=== PATIENT | female | born 1930 | race Caucasian/White ===

== ENCOUNTER 2016-08-22 15:09 | Inpatient (IN) | payer OTHER ==
[~2016-08-22] VITALS: Ht 144.8 cm; Wt 55.9 kg
--- NOTE | ~2016-08-22 | EKG ---
[place] [address] [facility] [place] [address] ELECTROCARDIOGRAM REPORT Name: KURTCHINYERE Room #: 444-P ADM IN M.R.#: [id number] Admission: 08/22/16 Attend Phys: Rod Prather DO Discharge: Date of : 32 Report #: [id number] THIS REPORT FOR: //name// [facility] ED Test Date: 2016-08-22 Test Time: 15:32:51 Pat Name: CHINYERE HICKS Department: Room: 444 Gender: F Presentation Specialist: Erick JOHNSON : 1930 Requested By: Courtney Mata Order Number: [id number] MD: Craig Jensen Measurements Intervals [place] Rate: 88 P: 75 CO: 158 QRS: -16 QRSD: 95 T: 33 QT: 360 QTc: 436 Interpretive Statements Sinus rhythm No significant abnormality No previous ECG available for comparison Electronically Signed On 08-23-2016 8:32:00 CDT by Craig Jensen [email or web address] <ELECTRONICALLY SIGNED> By: Craig Jensen MD, [facility] 08/23/16 0832 1532 1532 Craig Jensen MD, FACC /EPI
[~2016-08-22 15:09] MED LIST: ADULT LOW DOSE81 MG PO; ARICEPT 5 MG TAB5 MG PO; DILTIAZEM ER240 M1 PO; DOLOPHINE HCL10 MG PO; ENDOCET 5-3251 EACH PO; FISH OIL 1,001000 M2 PO; GABAPENTIN100 MG PO; GRALISE600 MG PO; HYDROCODON-ACE1 EAC5 PO; LISINOPRIL5 MG PO; METHADONE HCL5 MG PO; MS CONTIN 30 MG30 MG PO; MS CONTIN30 MG PO; NIASPAN 500 MG500 M1 PO; OS-CAL 500+D C1 EACH PO; OXYCONTIN15 MG PO; OXYCONTIN20 M1 PO; VITAMIN E400 UNIT PO; [UNRECOGNIZED DRUG - OTHER]; [UNRECOGNIZED DRUG - OTHER] TOP
[2016-08-22 15:10] VITALS: BP 112/49
[2016-08-22] MEDS ORDERED: DILAUDID 2 MG TA2 MG PO (15:25)
[2016-08-22] MEDS ORDERED: GABAPENTIN 100100 MG PO (15:29)
[2016-08-22] MEDS ORDERED: ARICEPT 5 MG TAB5 MG PO (15:30)
[2016-08-22 16:31] LABS: BASOPHILS 0.1 % (0.0-2.0); EOSINOPHILS 0.7 % (0.0-3.0); HEMATOCRIT 30.2 % (37.0-47.0); LYMPHOCYTES 19.4 % (24.0-44.0); MCH 29.6 pg (26.0-34.0); MCV 89.6 fL (80.0-100.0); PLATELET COUNT 254 thou/uL (150-400); POLYS 72.8 % (36.0-66.0); RBC 3.37 mil/uL (4.20-5.00); RDW 14.3 % (10.5-14.5); WBC 12.3 thou/uL (4.0-11.0)
[2016-08-22 16:40] LABS: MANUAL DIFF NO
[2016-08-22 16:47] LABS: ANION GAP 8 mmol/L (7-16); BUN 48 mg/dL (7-18); CALCIUM 8.9 mg/dL (8.5-10.1); CHLORIDE 103 mmol/L (98-107); CO2 25 mmol/L (21-32); CREATININE 1.7 mg/dL (0.6-1.3); GLUCOSE 99 mg/dL (70-99); POTASSIUM 4.7 mmol/L (3.5-5.1); SODIUM 136 mmol/L (136-145)
[2016-08-22 16:53] LABS: ALBUMIN 3.1 g/dL (3.4-5.0); ALKALINE PHOSPHATASE 87 U/L (46-116); SGOT 12 U/L (15-37); SGPT 15 U/L (30-65); TOTAL BILIRUBIN 0.4 mg/dL (<0.1-1.0); TOTAL PROTEIN 6.2 g/dL (6.4-8.2); TROPONIN-I < 0.04 ng/mL (<0.04-0.07)
[2016-08-22 17:03] LABS: URINE BILIRUBIN NEGATIVE (Negative); URINE BLOOD TRACE (Negative); URINE COLOR YELLOW; URINE GLUCOSE-RANDOM* NEGATIVE (Negative); URINE KETONES NEGATIVE (Negative); URINE NITRITE POSITIVE (Negative); URINE PROTEIN (DIPSTICK) NEGATIVE (Negative); URINE UROBILINOGEN 0.2 E.U./dl (0.2-1.0)
[2016-08-22 17:18] LABS: BACTERIA >30 Many /HPF (None Seen); CASTS None Seen /LPF (None Seen); CRYSTALS None Seen /LPF (None Seen); SQUAMOUS 0-3 Few /LPF (0-3); URINE RBC 0-2 Rare /HPF (0-2); URINE WBC 6-15 Few /HPF (0-5)
[2016-08-22 18:47] VITALS: BP 112/40
[2016-08-22 19:12] VITALS: BP 157/59
[2016-08-23 00:39] VITALS: BP 133/53
[2016-08-23 04:55] VITALS: BP 142/79
[2016-08-23 05:36] LABS: ABSOLUTE NEUTROPHILS 5.4 thou/uL (1.4-8.2); BASOPHILS 0.3 % (0.0-2.0); HEMATOCRIT 26.9 % (37.0-47.0); HEMOGLOBIN 9.1 gm/dL (12.0-15.0); LYMPHOCYTES 25.4 % (24.0-44.0); MCH 30.4 pg (26.0-34.0); MCHC 33.9 g/dL (28.0-37.0); MCV 89.7 fL (80.0-100.0); MONOCYTES 7.1 % (1.0-8.0); PLATELET COUNT 229 thou/uL (150-400); POLYS 64.2 % (36.0-66.0); RDW 14.2 % (10.5-14.5); WBC 8.4 thou/uL (4.0-11.0)
[2016-08-23 05:58] LABS: MANUAL DIFF NO
[2016-08-23 06:06] LABS: CALCIUM 8.6 mg/dL (8.5-10.1); CREATININE 1.3 mg/dL (0.6-1.3); POTASSIUM 4.2 mmol/L (3.5-5.1)
[2016-08-23 08:00] VITALS: BP 144/73
[2016-08-23 13:54] VITALS: BP 131/50
[2016-08-23 15:17] VITALS: BP 146/51
[2016-08-23] MEDS ORDERED: TRAMADOL 50 MG50 MG PO (16:44)
[2016-08-23] MEDS ORDERED: BRIMONIDINE TAR1 BO1 OP (16:45)
[2016-08-23] MEDS ORDERED: TIMOLOL MA0.5 %/5 M2 OPHTHALMIC (16:46)
[2016-08-23] MEDS ORDERED: XALATAN2.5 ML OPHTHALMIC (16:47)
[2016-08-23 19:52] VITALS: BP 166/69
[2016-08-24 04:42] VITALS: BP 131/66
[2016-08-24 08:15] VITALS: BP 144/64
[2016-08-24 12:40] VITALS: BP 143/67
[2016-08-24 15:06] VITALS: BP 158/61
[2016-08-24] MEDS ORDERED: CIPRO250 M1 PO (15:12)
[2016-08-24 16:23] VITALS: BP 158/61
== END 2016-08-24 17:00 | disposition home or self-care (01) | DRG 872 ==
LOC: ER 15:09 → EROBS 17:10 → 4S 17:10
PROVIDERS: Internal Medicine Geriatric Medicine; Physician Assistant
DX: A41.9 Sepsis, unspecified organism (principal); N17.9 Acute kidney failure, unspecified; N39.0 Urinary tract infection, site not specified; F11.20 Opioid dependence, uncomplicated; R65.10 Systemic inflammatory response syndrome (SIRS) of non-infectious origin without acute organ dysfunction; E86.0 Dehydration; I10 Essential (primary) hypertension; K21.9 Gastro-esophageal reflux disease without esophagitis; E78.5 Hyperlipidemia, unspecified; D72.829 Elevated white blood cell count, unspecified; G62.9 Polyneuropathy, unspecified; G89.29 Other chronic pain; B96.20 Unspecified Escherichia coli [E. coli] as the cause of diseases classified elsewhere; F03.90 Unspecified dementia, unspecified severity, without behavioral disturbance, psychotic disturbance, mood disturbance, and anxiety; Z90.12 Acquired absence of left breast and nipple; Z90.49 Acquired absence of other specified parts of digestive tract; Z79.82 Long term (current) use of aspirin; Z79.899 Other long term (current) drug therapy; Z86.73 Personal history of transient ischemic attack (TIA), and cerebral infarction without residual deficits
CPT/HCPCS: 10100; 10102

== ENCOUNTER → 2016-10-20 | Outpatient (CLI) | payer OTHER ==
[~2016-10-20] MED LIST changes: +BRIMONIDINE TAR1 BO1 OP; +CIPRO250 M1 PO; +DILAUDID 2 MG TA2 MG PO; +GABAPENTIN 100100 MG PO; +TIMOLOL MA0.5 %/5 M2 OPHTHALMIC; +TRAMADOL 50 MG50 MG PO; +XALATAN2.5 ML OPHTHALMIC
== END ==
LOC: ULTRA 04:06
DX: Z01.818 Encounter for other preprocedural examination (principal)

== ENCOUNTER → 2017-09-07 | Outpatient (CLI) | payer OTHER ==
[~2017-09-07] MED LIST changes: +ASPIRIN325 PO; +AUGMENTIN400 MG/53 PO; +FUROSEMIDE 40 M40 M1 PO; +HORIZANT300 MG PO; +HORIZANT600 MG PO; +HYDROCODON-ACE1 EAC8 PO; +KEFLEX500 M1 PO; +MOBIC7.5 MG PO; +OXYCODONE HCL15 MG PO; +TRAMADOL HCL50 MG PO; +TRAZODONE HCL50 MG PO; +VITAMIN D1000 UNI1 PO
[2017-09-07 17:33] LABS: ABSOLUTE NEUTROPHILS 4.5 thou/uL (1.4-8.2); BASOPHILS 0.7 % (0.0-2.0); EOSINOPHILS 0.7 % (0.0-3.0); HEMATOCRIT 39.5 % (37.0-47.0); HEMOGLOBIN 13.4 gm/dL (12.0-15.0); LYMPHOCYTES 25.2 % (24.0-44.0); MCH 31.9 pg (26.0-34.0); MCHC 33.8 g/dL (28.0-37.0); MCV 94.3 fL (80.0-100.0); MONOCYTES 11.3 % (1.0-8.0); PLATELET COUNT 221 thou/uL (150-400); POLYS 62.1 % (36.0-66.0); RBC 4.19 mil/uL (4.20-5.00); WBC 7.2 thou/uL (4.0-11.0)
[2017-09-07 17:49] LABS: ALBUMIN 4.2 g/dL (3.4-5.0); ANION GAP 10 mmol/L (7-16); BUN 36 mg/dL (7-18); CALCIUM 9.6 mg/dL (8.5-10.1); CHLORIDE 97 mmol/L (98-107); CHOLESTEROL 251 mg/dL (<200); CO2 27 mmol/L (21-32); CREATININE 1.5 mg/dL (0.6-1.0); GLUCOSE 102 mg/dL (74-106); HDL CHOLESTEROL 99 mg/dL (>40); LDL CHOLESTEROL 140 mg/dL (<100); POTASSIUM 4.6 mmol/L (3.5-5.1); SGOT 22 U/L (15-37); SGPT 35 U/L (30-65); SODIUM 134 mmol/L (136-145); TC:HDL 2.5 Ratio (Not establshd); TOTAL BILIRUBIN 0.3 mg/dL (<0.1-1.0); TOTAL PROTEIN 7.7 g/dL (6.4-8.2); TRIGLYCERIDE 60 mg/dL (<150); VLDL 12 mg/dL (<40)
[2017-09-12 13:29] VITALS: BP 118/52
== END ==
LOC: SEN 08:47
PROVIDERS: Nurse Practitioner Family
DX: G89.29 Other chronic pain (principal); M54.5 Low back pain; R53.81 Other malaise; R79.89 Other specified abnormal findings of blood chemistry

== ENCOUNTER → 2017-09-21 | Outpatient (CLI) | payer OTHER ==
[~2017-09-21] VITALS: Ht 147.3 cm; Wt 50.8 kg
[~2017-09-21] MED LIST changes: -MOBIC7.5 MG PO; -OXYCODONE HCL15 MG PO
--- NOTE | ~2017-09-21 | HPC ---
[facility] [address] [place] [address] PAIN MANAGEMENT CONSULTATION Name: CHINYERE HICKS Room #: REG ROXANNA Jeronimo.#: [id number] Admission: 09/21/17 Attend Phys: Cam Styles MD Discharge: Date of : 32 Report #: [id number] THIS REPORT FOR: //name// CC: Cam Saldana MD DATE OF SERVICE: 09/21/2017 REASON FOR CONSULTATION: Chronic pain in both legs. HISTORY OF PRESENT ILLNESS: I am seeing the patient today with her daughter. She has had longstanding pain in her legs that has previously been treated by Dr. Cartagena a pain specialist in [place] by spinal cord stimulator. It worked okay for a couple of years, then stopped working. They tried to adjust it and the pain was worse, so Dr. Cartagena took it out just 2 days ago. She is now looking for a appliance painter and refinisher to help manage her ongoing pain. Pain is scored by her daughter as a 4-5/10, at the worst it is 9 causing her to cry out in pain. Pain is rhythmic, steady and constant and is drawn down the posterior aspect of both legs in the L5-S1 distribution. She has a lot of pain in the right leg where she has an ankle fusion. She does not have allodynia, but she has hyperalgesia and tenderness. MEDICATIONS: Reviewed and reconciled. Medications include CBD oil applied to the feet, diltiazem, gabapentin 100 mg, tramadol 50 mg, timolol eyedrops, donepezil 5 mg daily, Lasix, vitamin D, gabapentin and a long-acting formulation Horizant taken 900 mg once a day, very expensive. She has hydrocodone for her postop pain from the removal of the spinal cord stimulator and trazodone at bedtime. ALLERGIES: None. PAST MEDICAL HISTORY: Significant for memory issues and dementia, which have been worsening. She has hypertension, osteoarthritis, history of cancer with mastectomy and a CVA, which has affected mostly memory, but no motor loss. PAST SURGICAL HISTORY: Include tonsillectomy, abdominal hernia, appendectomy, fusion of the right ankle, scope of the right knee, bilateral mastectomy, arthroscopic surgery of both shoulders. She had a carotid endarterectomy and spinal cord stimulator as described in history of present illness. SOCIAL HISTORY: She lives in her own house with her . She is quite limited. She can provide for all of her own self-care and hygiene, but she does not do any cooking or cleaning. Her daughter is supportive. She spends much of her time in bed due to pain. She does get out and goes to hinduism, taking mass once a week at [facility]. She does not smoke. She does not drink [facility] [address] [place] [address] PAIN MANAGEMENT CONSULTATION Name: CHINYERE HICKS Room #: REG CLI Colette#: [id number] Admission: 09/21/17 Attend Phys: Cam Styles MD Discharge: Date of : 32 Report #: [id number] alcoholic beverages. She has a significant fall risk and requires a walker. REVIEW OF SYSTEMS: Completed by the patient is discussed in entirety. She has had weight loss and decreased appetite, fatigue, weakness. She has had nocturia, insomnia, memory loss, and heat and cold intolerance. PHYSICAL EXAMINATION: GENERAL: She is a pleasant female. She is somewhat forgetful, but is able to carry on conversation and answer questions directly and correctly. VITAL SIGNS: Blood pressure of 106/50, heart rate is 80, she is 4 feet 10 inches, and BMI of 23. Oxygen saturation is 98% on room air and she is breathing easily. HEENT: Within normal limits. NECK: Supple. CHEST: Clear. CARDIAC: Rhythm shows no murmur and is regular. MUSCULOSKELETAL: Examination of the spine reveals some mild tenderness. Decreased range of motion. Examination of the lower extremities reveals no swelling or edema. The feet are warm. Palpable pulses, but are thready. She has decreased range of motion bilaterally of the ankles. Decreased sensation is noted in the L5 and S1 distribution. X-RAYS: None. IMPRESSION: 1. Chronic intractable pain, low back with history of peripheral neuropathy and some spinal stenosis and radiculopathy. 2. Dementia dating back to 2013. 3. Hypertension. 4. History of cerebrovascular accident x 2, last documented in 2013. 5. Chronic kidney disease. 6. History of mastectomy. RECOMMENDATIONS: 1. Discussed with daughter the limited options for management for an 87-year-old and we are focusing on symptom management. I have recommended that she continue on tramadol 3 times daily. 2. Trial of an epidural steroid injection for possible radicular component was recommended and we have scheduled her for that procedure at level 4 and 5 in the upcoming 2 weeks. We will see her back in the clinic for that treatment. 3. Precertification is sought. By: [id number] Cam Styles MD /nt
[2017-09-21 14:04] VITALS: BP 106/50
== END ==
LOC: PAIN 07:07
DX: M54.5 Low back pain (principal); G89.29 Other chronic pain; G62.9 Polyneuropathy, unspecified; F03.90 Unspecified dementia, unspecified severity, without behavioral disturbance, psychotic disturbance, mood disturbance, and anxiety; I12.9 Hypertensive chronic kidney disease with stage 1 through stage 4 chronic kidney disease, or unspecified chronic kidney disease; N18.9 Chronic kidney disease, unspecified; Z86.73 Personal history of transient ischemic attack (TIA), and cerebral infarction without residual deficits; Z98.890 Other specified postprocedural states; M19.90 Unspecified osteoarthritis, unspecified site; Z90.89 Acquired absence of other organs; Z90.49 Acquired absence of other specified parts of digestive tract

== ENCOUNTER → 2017-10-12 | Outpatient (CLI) | payer OTHER ==
[~2017-10-12] VITALS: Ht 147.3 cm; Wt 52.2 kg
[~2017-10-12] MED LIST changes: +MOBIC7.5 MG PO; +OXYCODONE HCL15 MG PO
--- NOTE | ~2017-10-12 | HPC ---
[facility] [address] [place] [address] PAIN MANAGEMENT CONSULTATION Name: CLAUDIA HICKSDEIDRA López Room #: REG CL Colette#: [id number] Admission: 10/12/17 Attend Phys: Cam Styles MD Discharge: Date of : 32 Report #: [id number] THIS REPORT FOR: //name// CC: Cam Hernandez Akkulugari DATE OF SERVICE: 10/12/2017 REASON FOR VISIT: Followup visit for lumbar radiculopathy. HISTORY OF PRESENT ILLNESS: The patient is here today for epidural injection. She was seen just 1 week ago. We were unable to perform the injection on that day, but I have now received preauthorization to go forward. In the interim, she has fallen while at home. She landed squarely on her left hip and greater trochanter resulting in a very large still consolidated hematoma. She has been to the hospital for x-rays. In fact, they even do the CT scan to ensure that there were no unrecognized fractures not seen on plain film. Fortunately, there was no bony fracture. Nonetheless, this is creating additional pain on top of the pain described in her last dictation, which is radicular in nature. Pain is into the right and left hip. She has significant discomfort up to 8/10 with standing and walking. Rest of medical history is nicely outlined in the dictation from previous visit and will not be repeated here having the patient seen within the last 2 weeks. PHYSICAL EXAMINATION: GENERAL: She is in a wheelchair. VITAL SIGNS: Blood pressure 136/54 and heart rate 80. MUSCULOSKELETAL: Examination of the left hip reveals a goose egg-sized hematoma overlying the greater trochanter and large significant bruising that extends down the lateral thigh as far as the knee. She continues to complain of pain in the L5-S1 distribution radiating down the posterior aspect of both legs. It should also be noted that since she was last seen in the pain clinic, she has had her spinal cord stimulator removed by Dr. James and those incisions have healed nicely. IMPRESSION: 1. Chronic intractable low back pain with radiculopathy. 2. Recent fall with large left hip hematoma. 3. Debility. RECOMMENDATIONS: Epidural steroid injection under fluoroscopic guidance. PROCEDURE: She was taken to the fluoroscopic suite for the injection, placed prone, skin prepped with ChloraPrep. Skin anesthetized over the L4-L5 [address] [address] PAIN MANAGEMENT CONSULTATION Name: TIMMY HICKSJOSH López Room #: [id number] Admission: 10/12/17 Attend Phys: Cam Styles MD Discharge: Date of : 32 Report #: [id number] interspace. A 20-gauge Tuohy epidural needle advanced into the epidural space with loss of resistance. No blood nor CSF was aspirated. One milliliter of Omnipaque injected. Good spread of dye was observed in the epidural space, was followed by 3 mL of 0.5% lidocaine mixed with 80 mg of triamcinolone. She tolerated the procedure okay, although was uncomfortable during the injection related to, I am sure, scar tissue in the epidural space from the spinal cord stimulator. Followup visit is planned in 1-2 months. By: 1607 2230 Cam Styles MD /nt
[2017-10-12 14:21] VITALS: BP 136/54
== END | disposition home or self-care (01) ==
LOC: PAIN 05:52
DX: M54.16 Radiculopathy, lumbar region (principal); G89.29 Other chronic pain

== ENCOUNTER 2017-11-08 16:51 | Inpatient (IN) | payer OTHER ==
[~2017-11-08] VITALS: Ht 147.3 cm; Wt 49.9 kg
--- NOTE | ~2017-11-08 | HC ---
[facility] [place] [address] CONSULTATION Name: CHINYERE HICKS Maribel Room #: 463-P [facility] IN .R.#: [id number] Admission: 11/08/17 Attend Phys: Venkat Bañuelos MD Discharge: Date of : 32 Report #: [id number] THIS REPORT FOR: //name// CC: David Griggs DATE OF SERVICE: 11/09/2017 HISTORY OF PRESENT ILLNESS: This frail 87-year-old female with mild dementia and chronic pain is still living semi-independently with her , but both have significant health problems. Her daughter notes that she is trying to make arrangements for some sort of assisted living for both of her parents who are somewhat resistant to this at this point. The patient has problems with chronic back pain and some radiating pain into both legs, worse on the right than the left. She apparently has had moderate problems for quite some time and has been evaluated and treated at times in the past. Recently, she has had an epidural steroid injection, but feels there has been no significant improvement. Her principal complaint now involves pain radiating down the right leg toward the foot with some sense of vague numbness and weakness. It is difficult to determine from my interview with the patient how severe and how long these symptoms have been present as she is somewhat confused. Her daughter states she has had moderate chronic symptoms, but they have become more severe in the recent past. She notes her mother is depressed and states she really just wants to . She is frustrated because she has chronic pain, but also because most of her friends have and she feels she has little enjoyment in her life. PHYSICAL EXAMINATION: At the time of my evaluation, the patient is resting comfortably in bed. She complains principally of right lower leg discomfort and notes this is aggravated by movement, activity or weightbearing. She does also complain of moderate generalized low back pain and less significant pain radiating down the left leg. Objectively, there is very limited range of motion in the low back with moderate generalized discomfort consistent with diffuse degenerative spondylosis. She seems to have satisfactory movement of both hips and both knees with only mild joint discomfort, suggestive of some mild degenerative arthritis in these areas. The right leg is uncomfortable with manipulation and with sciatic stretch test, and she notes some dysesthesia from the knee down to the foot. She has poor strength in both dorsiflexion and plantar flexion in both feet. Deep tendon reflexes are diminished. Imaging study of the low back includes a recent CT scan. This reveals rather severe multilevel degenerative spondylosis with a grade 2 spondylolisthesis of L4 on L5, which causes rather significant canal compromise. There is also moderate canal stenosis at L3-L4. There is significant degenerative spurring and degenerative disk disease at each level. [facility] [address] [place] [address] CONSULTATION Name: CHINYERE HICKS Maribel Room #: 463-P [facility] IN M.R.#: [id number] Admission: 11/08/17 Attend Phys: Venkat Bañuelos MD Discharge: Date of : 32 Report #: [id number] ASSESSMENT AND PLAN: I have discussed these issues at some length with the patient, although with difficulty given her dementia. I have also discussed this by phone with her daughter. Personally, I feel she is probably not a surgical candidate given her advanced age and very frail state. She clearly has evidence of multilevel spinal stenosis, which is probably the primary cause of her radiating leg pain. I note that she is scheduled for an MRI study today, which would be helpful to assess the degree of stenosis and also make sure there is not a complication following her recent epidural steroid such as hematoma or infection. If there is a fluid collection, then aspiration by Interventional Radiology would be helpful. If there is significant spinal stenosis, I would personally favor nonsurgical management with medications and I think her daughter agrees that she would like to avoid any surgery. However, if all these measures fail and there is significant localized spinal stenosis, then a limited 1 or 2 level laminectomy for decompression could be considered, but I think there is significant risk of perioperative problems and complications and only moderate chance of benefit given the chronic multilevel degenerative process noted. At this point, we will await the results of her MRI study and then I will comment further. She will continue with her current pain management program in the interim. <ELECTRONICALLY SIGNED> By: Lj Pope MD 11/10/17 1601 1258 [id number] Lj Pope MD /nt
--- NOTE | ~2017-11-08 | EKG ---
[place] [address] [facility] [place] [address] ELECTROCARDIOGRAM REPORT Name: CHINYERE HICKS Room #: 463-P [facility]#: [id number] Admission: 11/08/17 Attend Phys: Venkat Bañuelos MD Discharge: Date of : 32 Report #: [id number] THIS REPORT FOR: //name// [facility] ED Test Date: 2017-11-08 Test Time: 17:44:32 Pat Name: CHINYERE HICKS Department: Room: Gender: F Rock Singer: [facility] : 1930 Requested By: Stef Anderson Order Number: [id number] MD: Craig Jensen Measurements Intervals [place] Rate: 66 P: 67 MS: 175 QRS: -9 QRSD: 99 T: 55 QT: 411 QTc: 431 Interpretive Statements Sinus rhythm Left ventricular hypertrophy Compared to ECG 08/22/2016 15:32:51 No significant change was found Electronically Signed On 11-09-2017 8:34:40 CDT by Craig Jensen [email or web address] <ELECTRONICALLY SIGNED> By: Craig Jensen MD, [facility] 11/09/17 0834 1744 174 Craig Jensen MD, [facility] /EPI
[2017-11-08 16:52] VITALS: BP 120/41
[2017-11-08] MEDS ORDERED: MACROBID 100 M100 M1 PO (17:16)
[2017-11-08] MEDS ORDERED: TRAMADOL 50 MG50 MG PO (17:16)
[2017-11-08] MEDS ORDERED: ALPHAGAN P5 ML OPHTHALMIC (17:18)
[2017-11-08 18:01] LABS: ABSOLUTE NEUTROPHILS 2.8 thou/uL (1.4-8.2); BASOPHILS 0.7 % (0.0-2.0); EOSINOPHILS 1.7 % (0.0-3.0); HEMATOCRIT 35.2 % (37.0-47.0); HEMOGLOBIN 11.9 gm/dL (12.0-15.0); LYMPHOCYTES 24.1 % (24.0-44.0); MCH 32.4 pg (26.0-34.0); MCHC 33.8 g/dL (28.0-37.0); MONOCYTES 7.6 % (1.0-8.0); PLATELET COUNT 129 thou/uL (150-400); POLYS 65.9 % (36.0-66.0); RBC 3.67 mil/uL (4.20-5.00); RDW 15.3 % (10.5-14.5); WBC 4.2 thou/uL (4.0-11.0)
[2017-11-08 18:10] LABS: ANION GAP 8 mmol/L (7-16); BUN 32 mg/dL (7-18); CALCIUM 9.6 mg/dL (8.5-10.1); CHLORIDE 100 mmol/L (98-107); CO2 27 mmol/L (21-32); CREATININE 1.5 mg/dL (0.6-1.0); GLUCOSE 156 mg/dL (74-106); POTASSIUM 4.2 mmol/L (3.5-5.1); SODIUM 135 mmol/L (136-145)
[2017-11-08 18:20] LABS: TROPONIN-I < 0.04 ng/mL (<0.06)
[2017-11-08 18:28] LABS: URINE BILIRUBIN NEGATIVE (Negative); URINE BLOOD NEGATIVE (Negative); URINE CLARITY CLEAR; URINE COLOR YELLOW; URINE GLUCOSE-RANDOM* NEGATIVE (Negative); URINE KETONES NEGATIVE (Negative); URINE LEUKOCYTES-REFLEX NEGATIVE (Negative); URINE NITRITE-REFLEX NEGATIVE (Negative); URINE PROTEIN (DIPSTICK) NEGATIVE (Negative); URINE UROBILINOGEN 0.2 E.U./dl (0.2-1.0)
[2017-11-08 20:30] VITALS: BP 149/59
[2017-11-08 23:20] VITALS: BP 150/56
[2017-11-09 01:09] VITALS: BP 149/59
[2017-11-09 05:51] LABS: HEMATOCRIT 31.5 % (37.0-47.0); HEMOGLOBIN 10.6 gm/dL (12.0-15.0); MCH 32.4 pg (26.0-34.0); MCHC 33.7 g/dL (28.0-37.0); MCV 96.2 fL (80.0-100.0); RBC 3.27 mil/uL (4.20-5.00); RDW 15.1 % (10.5-14.5); WBC 4.2 thou/uL (4.0-11.0)
[2017-11-09 05:57] LABS: CREATININE 1.1 mg/dL (0.6-1.0); POTASSIUM 4.5 mmol/L (3.5-5.1)
[2017-11-09 06:44] VITALS: BP 149/66
[2017-11-09 08:03] VITALS: BP 170/60
[2017-11-09 16:10] VITALS: BP 92/41
[2017-11-09 19:59] VITALS: BP 94/31
[2017-11-10 11:16] VITALS: BP 144/66
[2017-11-10 16:02] VITALS: BP 106/45
[2017-11-11 04:43] VITALS: BP 160/86
[2017-11-11] MEDS ORDERED: TRAMADOL 50 MG50 MG PO (08:49)
[2017-11-11] MEDS ORDERED: CYCLOBENZAPRINE5 MG PO (08:49)
[2017-11-11] MEDS ORDERED: MEDROL DOSPAK21 TA1 PO (08:50)
[2017-11-11] MEDS ORDERED: NEURONTIN 300300 M1 PO (08:50)
[2017-11-11 09:33] VITALS: BP 137/51
[2017-11-11 09:34] VITALS: BP 137/51
== END 2017-11-11 14:08 | DRG 551 ==
LOC: ER 16:51 → 4W 19:01 → EROBS 19:01 → 4W 20:23
PROVIDERS: Nurse Practitioner Family; Physician Assistant
DX: M48.061 Spinal stenosis, lumbar region without neurogenic claudication (principal); E43 Unspecified severe protein-calorie malnutrition; N39.0 Urinary tract infection, site not specified; M19.072 Primary osteoarthritis, left ankle and foot; I10 Essential (primary) hypertension; K21.9 Gastro-esophageal reflux disease without esophagitis; E78.00 Pure hypercholesterolemia, unspecified; F03.90 Unspecified dementia, unspecified severity, without behavioral disturbance, psychotic disturbance, mood disturbance, and anxiety; E78.5 Hyperlipidemia, unspecified; G89.29 Other chronic pain; M54.9 Dorsalgia, unspecified; K59.00 Constipation, unspecified; Z66 Do not resuscitate; M43.10 Spondylolisthesis, site unspecified; M54.16 Radiculopathy, lumbar region; M41.9 Scoliosis, unspecified; Z68.23 Body mass index [BMI] 23.0-23.9, adult; Z90.49 Acquired absence of other specified parts of digestive tract; Z90.12 Acquired absence of left breast and nipple; Z98.49 Cataract extraction status, unspecified eye

== ENCOUNTER 2018-08-23 13:52 | Emergency (ER) | payer OTHER ==
[~2018-08-23] VITALS: Ht 152.4 cm; Wt 55.8 kg
[~2018-08-23 13:52] MED LIST changes: +ALPHAGAN P5 ML OPHTHALMIC; +CYCLOBENZAPRINE5 MG PO; +MACROBID 100 M100 M1 PO; +MEDROL DOSPAK21 TA1 PO; +NEURONTIN 300300 M1 PO
[2018-08-23 14:29] LABS: URINE BILIRUBIN NEGATIVE (Negative); URINE BLOOD NEGATIVE (Negative); URINE CLARITY CLEAR; URINE COLOR YELLOW; URINE GLUCOSE-RANDOM* NEGATIVE (Negative); URINE KETONES NEGATIVE (Negative); URINE LEUKOCYTES-REFLEX NEGATIVE (Negative); URINE NITRITE-REFLEX NEGATIVE (Negative); URINE PROTEIN (DIPSTICK) NEGATIVE (Negative); URINE UROBILINOGEN 0.2 E.U./dl (0.2-1.0)
[2018-08-23 14:51] LABS: ABSOLUTE NEUTROPHILS 5.1 thou/uL (1.4-8.2); BASOPHILS 0.3 % (0.0-2.0); HEMATOCRIT 29.3 % (37.0-47.0); HEMOGLOBIN 9.9 gm/dL (12.0-15.0); LYMPHOCYTES 12.9 % (24.0-44.0); MCH 31.7 pg (26.0-34.0); MCHC 33.7 g/dL (28.0-37.0); MONOCYTES 9.1 % (1.0-8.0); PLATELET COUNT 236 thou/uL (150-400); POLYS 76.7 % (36.0-66.0); RBC 3.12 mil/uL (4.20-5.00); RDW 14.4 % (10.5-14.5); WBC 6.6 thou/uL (4.0-11.0)
[2018-08-23 14:54] LABS: CALCIUM 8.8 mg/dL (8.5-10.1); CREATININE 1.4 mg/dL (0.6-1.0); POTASSIUM 5.2 mmol/L (3.5-5.1)
[2018-08-23] MEDS ORDERED: NAMZARIC 21 MG1 EACH PO (14:57)
[2018-08-23] MEDS ORDERED: NAMZARIC 28 MG1 EACH PO (15:01)
[2018-08-23] MEDS ORDERED: NEURONTIN 300300 M1 PO ×2 (15:04)
[2018-08-23] MEDS ORDERED: TRAMADOL 50 MG50 MG PO (15:06)
[2018-08-23] MEDS ORDERED: INDAPAMIDE2.5 MG PO (15:08)
[2018-08-23] MEDS ORDERED: BACTRIM DS TAB1 EACH PO (15:09)
[2018-08-23] MEDS ORDERED: ASA5UEC PO (15:09)
[2018-08-23] MEDS ORDERED: CYMBALTA30 MG PO (15:10)
[2018-08-23] MEDS ORDERED: MIRAPEX 0.250.25 M1 PO (15:10)
[2018-08-23] MEDS ORDERED: NYAMYC15 GM TOP (15:13)
[2018-08-23] MEDS ORDERED: KETOCONAZOLE15 GM TOP (15:13)
[2018-08-23 15:54] VITALS: BP 143/62
--- NOTE | 2018-08-23 18:08 | EKG ---
[place] [address] [facility] [place] [address] ELECTROCARDIOGRAM REPORT Name: CHINYERE HICKS Room #: DEP [facility]#: [id number] ������������������ Admission: 08/23/18 ������������������ Attend Phys: Discharge: 08/23/18 ������������������ Date of : 32 Report #: [id number] ����������������������������������������������������������������� [id number] THIS REPORT FOR: //name// [facility] ED Test Date: 2018-08-23 Test Time: 15:29:28 Pat Name: CHINYERE HICKS Department: Room: Gender: F Printing Pressman: [place] : 1930 Requested By: Willian Horn Order Number: [id number] MD: Craig Jensen Measurements Intervals [place] Rate: 54 P: 52 WI: 149 QRS: -5 QRSD: 100 T: 73 QT: 459 QTc: 435 Interpretive Statements Sinus bradycardia Probable left ventricular hypertrophy Compared to ECG 11/08/2017 17:44:32 No significant changes Electronically Signed On 08-23-2018 18:08:18 CDT by Craig Jensen [email or web address] ��������������������������������������������� <ELECTRONICALLY SIGNED> ���������������������������������������� By: Craig Jensen MD, [facility] ��������������������������������������������� 08/23/18 1808 1529 1529 Craig Jensen MD, FACC /EPI
== END 2018-08-23 16:13 | disposition home or self-care (01) ==
LOC: ER 13:52
PROVIDERS: Emergency Medicine
DX: S81.811A Laceration without foreign body, right lower leg, initial encounter (principal); S00.83XA Contusion of other part of head, initial encounter; R10.84 Generalized abdominal pain; M54.2 Cervicalgia; I10 Essential (primary) hypertension; K21.9 Gastro-esophageal reflux disease without esophagitis; E78.00 Pure hypercholesterolemia, unspecified; Z90.12 Acquired absence of left breast and nipple; Z98.890 Other specified postprocedural states; Z90.49 Acquired absence of other specified parts of digestive tract; W10.8XXA Fall (on) (from) other stairs and steps, initial encounter; Y93.89 Activity, other specified; Y92.89 Other specified places as the place of occurrence of the external cause; Y99.8 Other external cause status

== ENCOUNTER 2018-09-05 18:44 | Inpatient (IN) | payer OTHER ==
[~2018-09-05] VITALS: Ht 147.3 cm; Wt 61.6 kg
[~2018-09-05 18:44] MED LIST changes: +ASA5UEC PO; +BACTRIM DS TAB1 EACH PO; +CYMBALTA30 MG PO; +INDAPAMIDE2.5 MG PO; +KETOCONAZOLE15 GM TOP; +MIRAPEX 0.250.25 M1 PO; +NAMZARIC 21 MG1 EACH PO; +NAMZARIC 28 MG1 EACH PO; +NYAMYC15 GM TOP
[2018-09-05 18:45] VITALS: BP 126/46
[2018-09-05 20:18] LABS: ABSOLUTE NEUTROPHILS 3.2 thou/uL (1.4-8.2); BASOPHILS 0.3 % (0.0-2.0); EOSINOPHILS 2.5 % (0.0-3.0); HEMATOCRIT 27.2 % (37.0-47.0); LYMPHOCYTES 17.8 % (24.0-44.0); MCH 31.3 pg (26.0-34.0); MCHC 33.2 g/dL (28.0-37.0); MCV 94.3 fL (80.0-100.0); MONOCYTES 8.7 % (1.0-8.0); PLATELET COUNT 147 thou/uL (150-400); POLYS 70.7 % (36.0-66.0); RBC 2.88 mil/uL (4.20-5.00); WBC 4.6 thou/uL (4.0-11.0)
[2018-09-05 20:29] LABS: CALCIUM 9.1 mg/dL (8.5-10.1); CREATININE 1.4 mg/dL (0.6-1.0); POTASSIUM 4.4 mmol/L (3.5-5.1)
[2018-09-05 21:07] LABS: URINE BILIRUBIN NEGATIVE (Negative); URINE BLOOD NEGATIVE (Negative); URINE CLARITY CLEAR; URINE COLOR YELLOW; URINE GLUCOSE-RANDOM* NEGATIVE (Negative); URINE KETONES NEGATIVE (Negative); URINE LEUKOCYTES-REFLEX NEGATIVE (Negative); URINE NITRITE-REFLEX NEGATIVE (Negative); URINE PROTEIN (DIPSTICK) NEGATIVE (Negative); URINE UROBILINOGEN 0.2 E.U./dl (0.2-1.0)
[2018-09-05 22:42] VITALS: BP 158/57
[2018-09-05 23:00] VITALS: BP 158/57
[2018-09-05 23:02] VITALS: BP 158/57
[2018-09-05 23:10] VITALS: BP 164/63
[2018-09-06] MEDS ORDERED: LASIX 40 MG TAB40 M2 PO (01:09)
[2018-09-06] MEDS ORDERED: TRAZODONE HCL100 MG PO (01:09)
[2018-09-06] MEDS ORDERED: AUGMENTIN 500-1 EACH PO (01:11)
[2018-09-06 04:12] VITALS: BP 147/60
--- NOTE | 2018-09-06 07:55 | NUR ---
Arrived on the floor from ER around 2315 accompanied by family members. Med rec done and verified with family ( brought bottles from home and sent back home). Bed alarm on and falls consent signed by pt. after explaining to them. Pt. lives at home with who has dementia. Daughter who is DPOA stated pt. also having a hard time doing ADL's due to leg swelling and wounds. Unsteady on her feet and has multiple falls at home. Blister on left foot, lower ext. redness. and has open area on left foot (back side). Also has yeast infection on verna groins/abdominal folds per daughter.See wound photos in chart. Afebrile. Daughter and pt. stated she is DNR. BOILERMAKER APPRENTICE notified and order for DNR received. Voided per commode. Will continue to monitor.
[2018-09-06 08:07] VITALS: BP 146/61
[2018-09-06] MEDS ORDERED: SULFAMETHOXAZO1 EACH PO (09:30)
[2018-09-06] MEDS ORDERED: IPRATROPIUM BRO30 ML NASAL (09:34)
[2018-09-06] MEDS ORDERED: NEURONTIN 300300 M1 (09:37)
[2018-09-06] MEDS ORDERED: ALEVE220 MG PO (09:47)
[2018-09-06] MEDS ORDERED: TYLENOL325 MG PO (09:48)
--- NOTE | 2018-09-06 10:06 | NUR ---
ASSESSMENT: CM REVIEWED CHART AND MET WITH PATIENT AT THE BEDSIDE. PT WAS SITTING UP IN HER CHAIR. PT WAS ADMITTED DUE TO RIGHT LOWER EXTREMITY CELLULITIS. PT REPORTS SHE LIVES IN A HOUSE WITH HER . SHE STATES HER DOES MOST OF THE COOKING AND ERRANDS. PT REPORTS THAT SHE USES A WHEELCHAIR FOR AMBULATION AT THE HOME. PT REPORT HER DAUGHTER AMA IS VERY SUPPORTIVE AND COMES TO HELP HER SHOWER. PT IS CURRENTLY IN SERVICES WITH [facility] AND PLANS TO RESUME THIS AT DISCHARGE. OT SAW PATIENT AND RECOMMENDING BACK HOME WITH HH. PHYSICAL THERAPY EVAL IS STILL PENDING. CM SPOKE WITH PATIENTS DAUGHTER AMA TO UPDATE. CM FAXED REFERRAL TO [facility] . CM WILL CONTINUE TO FOLLOW TO ASSIST NEEDED.
[2018-09-06 11:31] VITALS: BP 126/40
--- NOTE | 2018-09-06 14:11 | NUR ---
Nutrition: Pt admitted for lower extremity cellulitis, seen for wound. Has blisters on left foot, lower extremity redness, open area on back of left foot. Appetite has been okay, usually eats well but has been eating less due to pain. UBW 115-120 lbs, current 136 lbs. Wt up 12 lbs x1 month, and up 23 lbs x1 year. Requested Ensure x1 daily, will order. Encouraged intake of protein foods. With interventions in place, low nutrition risk.
--- NOTE | 2018-09-06 15:03 | NUR ---
WOUND CONSULT: PT. WAS SEEN TODAY BY DR. HOLLINS AND MYSELF. PT. HAS BLISTERS TO HER BILATERAL LOWER EXTREMITYS WITH NOTABLE EDEMA. PT. ALSO HAS A ULCER TO HER PLANTER SURFACE OF HER LEFT FOOT THAT IS VERY TENDER. RECOMMENDATIONS: CONTINUE WITH CURRENT PLAN OF CARE. PT. AND STAFF NURSE WERE INSTRUCTED ON PLAN OF CARE.
--- NOTE | 2018-09-06 16:30 | NUR ---
PT SEEN BY WOUND CARE AND UP WITH PT/OT TODAY. WILL WRAP LOWER EXTREMITIES PER WOUND CARE INSTRUCTIONS ONCE PHARMACY SENDS GENTIMYCIN CREAM TO FLOOR.
[2018-09-06 16:50] VITALS: BP 163/69
[2018-09-06 20:15] VITALS: BP 158/66
--- NOTE | 2018-09-07 04:19 | NUR ---
Pt. slept fair during the night. Forgetful and impulsive when awake. Reoriented and encouraged to call if she needs to get up. Bed alarm on. Up with assist to commode at beginning of shift and was already incontinent of bm and had some more when she got up. She is continent of bladder though she gets up very frequently. C/O of her legs hurting everytime she gets up. Offered female external catheter to help her get some rest at night and minimize leg pain. Tramadol also given with some relief. Pt. needs frequent reminder. Will continue to monitor.
[2018-09-07 04:52] LABS: CALCIUM 9.1 mg/dL (8.5-10.1); CREATININE 1.2 mg/dL (0.6-1.0); MAGNESIUM 2.1 mg/dL (1.8-2.4); POTASSIUM 4.4 mmol/L (3.5-5.1)
[2018-09-07 05:11] LABS: ABSOLUTE NEUTROPHILS 3.5 thou/uL (1.4-8.2); BASOPHILS 0.3 % (0.0-2.0); EOSINOPHILS 2.9 % (0.0-3.0); HEMATOCRIT 28.3 % (37.0-47.0); HEMOGLOBIN 9.5 gm/dL (12.0-15.0); LYMPHOCYTES 19.9 % (24.0-44.0); MCH 31.5 pg (26.0-34.0); MCHC 33.4 g/dL (28.0-37.0); MCV 94.2 fL (80.0-100.0); MONOCYTES 10.1 % (1.0-8.0); PLATELET COUNT 174 thou/uL (150-400); POLYS 66.8 % (36.0-66.0); RDW 15.3 % (10.5-14.5); WBC 5.2 thou/uL (4.0-11.0)
[2018-09-07 05:56] VITALS: BP 160/71
[2018-09-07 08:00] VITALS: BP 169/69
[2018-09-07 11:31] VITALS: BP 133/67
[2018-09-07 15:16] VITALS: BP 146/62
--- NOTE | 2018-09-07 16:10 | NUR ---
WOUND FOLLOW UP: PT. WAS SEEN TODAY BY DR. HOLLINS AND MYSELF. PT. WOUNDS ARE CLINICALLY BETTER TODAY. RECOMMENDATIONS: CONTINUE WITH CURRENT PLAN OF CARE. PT. AND STAFF NURSE WERE INSTRUCTED ON PLAN OF CARE.
--- NOTE | 2018-09-07 16:24 | NUR ---
ON-GOING ASSESSMENT: CM REVIEWED CHART AND MET WITH PATIENT AND SPOKE WITH HER DAUGHTER AND HER SON AT THE BEDSIDE. CM DISCUSSED SNF VS LTC. DAUGHTER AND PATIENT REPORT THAT PATIENT WOULD PREFER TO GO TO LTC AND NOT GO TO SNF SHE HAS BEEN TO SNF BEFORE AND DOES NOT WANT TO GO THROUGH ALL THE THERAPY. PATIENTS AND SON CAME UP TO THE HOSPITAL LATER IN THE AFTERNOON AND ALL ARE IN AGREEANCE FOR HER TO GO TO LTC. THEY PREFER SHE GOES TO [facility]. PT HAS A MEDICAID SPENDDOWN THAT IS SECONDARY. CM REACHED [facility] THE [facility] AT [facility] AND SENT THE REFERRAL. [facility] REACHED OUT TO PATIENTS ELI SERRATO AND SPOKE WITH HER AND SHE IS WORKING ON GETTING [facility] THE BANK STATESMENTS HE NEEDS TO ACCEPT HER TO LTC. [facility] STATING THEY CANNOT ACCEPT HER OVER THE WEEKEND THEY ARE STILL FINALIZING THE PAPERWORK THEY NEED FOR LTC BUT LONG THE DAUGHTER PROVIDES IT THEY WILL LIKELY BE ABLE TO ACCEPT HER ON MONDAY. CM WILL CONTINUE TO FOLLOW TO ASSIST NEEDED.
[2018-09-07 20:00] VITALS: BP 152/63
[2018-09-08 04:00] VITALS: BP 154/65
--- NOTE | 2018-09-08 07:49 | NUR ---
ASSUMED CARE OF PT AT 1900. A&OX3, COOPERATIVE W/ OCC CONFUSION. VS STABLE. USED BSC 4Xs. INCONTINENT OF URINE 4 Xs, BED SOAKED THROUGH SHEETS WHILE SLEEPING, CLEANED PRN. RATING PAIN 8-10/10 IN BACK AND GENERALIZED. TYLENOL WAS MOD EFFECTIVE. ABLE TO SLEEP FOR 4 HRS THIS MORNING. NO ACUTE DISTRESS. ASSMTS PROGRESSING WELL TOWARDS POC GOALS.
[2018-09-08 08:04] VITALS: BP 139/83
[2018-09-08 14:01] VITALS: BP 133/46
--- NOTE | 2018-09-08 14:44 | NUR ---
PATIENT TRANSFERRED AT 1403 FROM 3W ROOM #361 TO ROOM #226. PATIENT ORIENTED AND SETTLED TO ROOM WITH BED ALARM SET. PATIENT'S LEGS WERE WRAPPED BY NURSE MIGDALIA ON 3W BUT PATIENT COMPLAINED ABOUT WRAPS BEING TOO TIGHT AND SHE TOOK THEM OFF. SHE DOES NOT WANT LEGS WRAPPED. WILL PUT DRESSING ON SORE ON THE BOTTOM OF FOOT.
[2018-09-08 15:11] VITALS: BP 151/95
--- NOTE | 2018-09-08 15:20 | NUR ---
PATIENT TRANSFERED TO SENIOR SUITES. SHE IS MORE ALERT AT THIS TIME. SHE HAS BEEN UP TO BEDSIDE COMMODE A FEW TIMES THIS AM. SHE IS PLESANT WITH CARES. RESPORT GIVEN FOR SENIOR SUITES. SHE REFUSED HER DRESSING TO BLE. PREFERS TO HAVE LEGS OPEN TO AIR. FAMILY INFORMED OF ROOM CHANGE.
[2018-09-08 19:32] VITALS: BP 133/63
--- NOTE | 2018-09-09 04:14 | NUR ---
ASSUMED CARE OF PATIENT AT 1900. VSS. ASSESSMENT COMPLETED AT 191 AND IS DOCUMENTED. PT A&O X3 AT BEGINNING OF SHIFT, BUT IS NOW ORIENTED TO PERSON ONLY. PT USUALLY UP TO BSC WITH SBA, HAS BEEN INCONTINENT OF BLADDER TONIGHT. SEVERAL WOUNDS ON BLE; PT REFUSES TO ALLOW WOUND CARE. RIGHT AC PATENT AND SALINE LOCKED. VANCO INFUSED WITHOUT COMPLICATION. PRN TRAMADOL GIVEN FOR C/O LLE PAIN WITH DESIRED EFFECT ACHIEVED. PT RESTLESSLY SLEEPING TONIGHT. CALL LIGHT WITHIN REACH. BED ALARMED, LOCKED, AND IN LOWEST POSITION. WCTM.
[2018-09-09 07:25] VITALS: BP 114/49
--- NOTE | 2018-09-09 11:58 | NUR ---
ASSUMED CARE OF PATIENT THIS MORNING. PATIENT IS A&OX4 W/SOME CONFUSION. FALL PRECAUTIONS ARE IN PLACE. SHE CALLS OUT APPROPRIATELY FOR ASSISTANCE AT TIMES. SHE GETS UP WITH MINIMUM ASSIST TO BSC AND CHAIR. PATIENT RECEIVED TRAMADOL FOR PAIN. RATED PAIN 10/10 AND PAIN WILL BE REASSESSED. SHE IS CONTINENT BUT CAN BE INCONTINENT AT TIMES. SHE HAS A LEFT LIMB ALERT DUE TO A PAST MASTECTOMY. SHE IS SUPPOSE TO HAVE WOUND CARE TO LEFT LEG/FOOT AND RIGHT LEG QS, BUT SHE REFUSES TO HAVE LEGS DRESSED DUE TO DISCOMFORT AND PAIN. A OPTIFOAM DRESSING IS CURRENTLY IN PLACE ON THE BOTTOM OF HER LEFT FOOT. ANTIBIOTICS WILL STILL BE APPLIED TO THE AFFECTED EXTREMITIES. PATIENT IS CURRENTLY RESTING IN BED WITH CALL LIGHT WITHIN REACH.
--- NOTE | 2018-09-09 18:04 | NUR ---
I AGREE WITH NURSING ASSESSMENT DONE BY JOHN/EVERT.
[2018-09-09 20:10] VITALS: BP 111/47
--- NOTE | 2018-09-10 04:10 | NUR ---
Assumed pt. care at 1900. Pt. remains A&Ox4; swallows meds whole w/o difficulty. Remains incont. B&B, at times. Ambulates to BSC w/ asst x 1; gait steady. Remains on IVABT/cellulitis to RLE; no adverse reactions noted. RLE TOLL COLLECTOR d/t pt's refusal of wraps. RFA SL noted; infused ABT/flushed w/o difficulty. DRSG to bottom of L foot remains C/D/I, at this time. Last BM 09/09/18. Remains on fall precautions. Pt has no c/o pain or discomfort. No s/s of acute distress noted. Pt in bed asleep w/ call light/desired belongings within reach and bed alarm intact. Po fluids encouraged. Will continue to monitor.
--- NOTE | 2018-09-10 07:30 | NUR ---
PATIENTS NOTES AND ASSESMENTS ARE AGREED.
--- NOTE | 2018-09-10 10:39 | NUR ---
on-going assessment: PTS DAUGHTER REPORTS TURNING IN ALL THE NEEDED PAPERWORK IN ATTEMPTS FOR HER MOTHER TO GO ELECTRONICS UTILITY WORKER CARE AT [facility]. CM REACHED OUT TO LIAROCIO GONZALEZ) AT [facility] THIS AM TO SEE IF PATIENT COULD COME TODAY. HE STATES HIS BUSINESS OFFICE IS CURRENTLY REVIEWING ALL THE PAPERWORK AND WILL GET BACK WITH CM.
--- NOTE | 2018-09-10 14:59 | NUR ---
WOUND CARE FOLLOW UP; ROUNDING TODAY WITH KAYLA GARCIA. ASSMENT WAS WNL, THE WOUNDS LOOKED STABLE AT THIS TIME. THE PATIENT C/O BACK PAIN AND REQUESTED WE ASSESS IT. THIS ASSESSMENT WAS UNREMARKABLE. RECOMMENDATIONS; CONT. POC DISCUSSED WITH ZAIN
[2018-09-10 15:10] VITALS: BP 111/47
--- NOTE | 2018-09-10 15:16 | NUR ---
ON-GOING ASSESSMENT: LESLIE REACHED OUT TO [facility]AS[facility] AT [facility] THIS AM TO SEE IF THEY WERE GOING TO ACCEPT THE PATIENT FOR LTC DAUGHTER REPORTED SHE TURNED IN ALL THE PAPERWORK TO THEM THAT THEY REQUESTED. LESLIE SPOKE WITH PATIENTS DAUGHTER WHO STATES SHE WAS FINALLY ABLE TO GET [employer] OF THE BUSINESS OFFICE AND THEY WILL NOT ACCEPT HER AT THIS TIME FOR MEDICAID BED. LESLIE REACHED OUT TO NASRIN THE [facility] WHO RETURNED CALL AND STATED THAT THEY NEED TO COMPLETE A DIVISION OF ASSETS AND SUBMIT THE YULIA TO MEDICAID FOR VENDOR SERVICES AFTER AND REPORT THEY NEED AN ELDER LAW CABLE SPLICER TO COMPLETE THAT. CM DISCUSSED WITH PATIENTS DAUGHTER THAT WE COULD ATTEMPT TO GET PATIENT TO SNF IF SNF RECEIVED INSURANCE AUTH THEY EXPRESSED [facility]VIOUS [facility]EST [facility]. DAUGHTER/DPROWAN SERRATO REPORTING THEY DO NOT WANT TO GO TO A SNF AND HER MOTHER DOES NOT WANT TO EITHER AND SHE JUST WANTS TO TAKE HER BACK HOME WITH HH. AMA REPORTS THAT SHE IS ABLE TO HELP AND THEY ALSO HAVE FAMILY COMING IN TOWN TO STAY WHO CAN STAY AND HELP ASSIST WITH HER. PT HAS WHEELCHAIR AND BEDSIDE COMMODE AT HOME AND DAUGHTER REPORTS SHE DOES NOT WALK AT HOME ANYWAYS. PT HAD [facility] PRIOR TO ADMISSION AND THEY WISH TO RESUME SERVICEDS AT DISCHARGE. CM NOTIFIED ATTENDING AND PLAN IS FOR PATIENT TO GO HOME WITH [facility] TODAY. PATIENTS DAUGHTER AMA IS COMING TO PAPER BALING MACHINE OPERATOR PATIENT AND CAN AT ANYTIME. CM NOTIFIED BEDSIDE RN WELL PROVIDED WITH THE NUMBER FOR HER DAUGHTER/LILI SERRATO.
[2018-09-10] MEDS ORDERED: ACIDOPHILUS1 EAC4 PO (16:03)
[2018-09-10] MEDS ORDERED: LIDOPATCH1 EACH TRANSDERM (16:03)
[2018-09-10] MEDS ORDERED: BACTRIM DS TAB1 EACH PO (16:03)
--- NOTE | 2018-09-10 17:07 | NUR ---
PT ASSESSED AT START OF SHIFT. PT SOMEWHAT FORGETFUL. UP TO THE BSC AND CHAIR W/ MIN ASSIST USING WALKER. HAD LARGE SOFT, BM. FREQUENT VOIDING -PVR 248MLS ONLY. EATING AND DRINKING WELL. PLAN FOR DISCHARGE THIS EVENING TO HOME W/ DTR AND HOME HEALTH.
[2018-09-10 17:42] VITALS: BP 111/47
[2018-09-10 18:00] VITALS: BP 134/70
--- NOTE | 2018-09-10 20:07 | NUR ---
Pt alert with confusion, VSS.Discharged to home with daughter at 1945. Discharge instructions reviewed with pt/daughter. Escorted out by nursing personal on a WC. All personal items sent with patient.
[2018-09-10 20:09] VITALS: BP 111/47
--- NOTE | 2018-09-11 09:54 | HC ---
[facility] [place] [address] CONSULTATION Name: CHINYERE HICKS Maribel Room #: 226-P [facility] IN .R.#: [id number] Admission: 09/05/18 ������������������ Attend Phys: Flaco Ramos MD Discharge: 09/10/18 ������������������ Date of : 34 Report #: [id number] THIS REPORT FOR: //name// CC: Flaco Griggs DATE OF SERVICE: 09/06/2018 CHIEF COMPLAINT: Left foot ulceration. HISTORY OF PRESENT ILLNESS: This is an 88-year-old female patient admitted with a history of chronic low back pain and development of increasing swelling, drainage and ulceration to her lower extremities. She is significantly poor historian with memory issues. She does note some pain in her legs, but denies significant complaints at this time. PAST MEDICAL HISTORY: Positive for history of hypertension, gastroesophageal reflux disease, hypercholesterolemia, previous left mastectomy and previous right carotid endarterectomy and right ankle fusion. SOCIAL HISTORY: The patient admits to 1 can of beer daily for the last 40 years. Denies tobacco use. MEDICATIONS: Include Namzaric, Ultram, aspirin, Mirapex, Cymbalta, ketaconazole, nystatin powder, Alphagan, trazodone, indapamide, Lasix, Augmentin, Bactrim, gabapentin, diltiazem. ALLERGIES: No known drug allergies. FAMILY HISTORY: Unknown. REVIEW OF SYSTEMS: Not obtainable and is otherwise noted in the history of present illness due to the patient's significant memory impairment. PHYSICAL EXAMINATION: VITAL SIGNS: At this time include temperature 36.4, pulse 95, respiratory rate of 18, blood pressure 160/69. GENERAL: This is a chronically ill-appearing female patient who appears to be in minimal distress. HEENT: Head normocephalic. Nose and throat are clear. NECK: Supple. LUNGS: Clear. HEART: Regular without murmur. ABDOMEN: Soft. EXTREMITIES: Lower extremities demonstrate 3+ edema bilaterally with significant erythema bilaterally. Distal pulses are difficult to palpate. This [facility] [address] [place] [address] CONSULTATION Name: CHINYERE HICKS Maribel Room #: [address] [place] [address] [place] [facility].#: [id number] Admission: 09/05/18 ������������������ Attend Phys: Flaco Ramos MD Discharge: 09/10/18 ������������������ Date of : 32 Report #: [id number] may be on account of edema present. LABORATORY DATA: Sodium 135, potassium 4.4, chloride 101, CO2 27, BUN 30, creatinine 1.4, glucose 133. White blood cell count 4.6 with a hemoglobin 9.0. CLINICAL IMPRESSION: 1. Ulcerations of the left foot and ankle and blisters due to edema. 2. Cellulitis of the right leg. 3. Lymphedema, bilateral lower extremities. RECOMMENDATIONS: At this point in time, we will check arterial Dopplers before initiating compression. If she has reasonably good flow, we could initiate compression therapy to reduce the edema. Recommend elevation for edema control at present, gentamicin topically with Xeroform gauze, Kerlix and Milka. Cultures have been obtained. I appreciate being asked to see her in consultation. ��������������������������������������������� <ELECTRONICALLY SIGNED> ���������������������������������������� By: Wes Mooney MD ��������������������������������������������� 09/11/18 0954 [id number] Wes Mooney MD /nt
== END 2018-09-10 19:45 | disposition home health service (06) | DRG 602 ==
LOC: ER 18:44 → SICU 22:24 → 3W 22:24 → EROBS 22:24 → 3W 23:07 → SICU 09-08 13:59
PROVIDERS: Nurse Practitioner; Student in an Organized Health Care Education/Training Program; ADMIT Internal Medicine
DX: L03.115 Cellulitis of right lower limb (principal); E43 Unspecified severe protein-calorie malnutrition; N17.9 Acute kidney failure, unspecified; N18.4 Chronic kidney disease, stage 4 (severe); L03.116 Cellulitis of left lower limb; K21.9 Gastro-esophageal reflux disease without esophagitis; L97.529 Non-pressure chronic ulcer of other part of left foot with unspecified severity; S90.822A Blister (nonthermal), left foot, initial encounter; Z66 Do not resuscitate; G25.81 Restless legs syndrome; D63.8 Anemia in other chronic diseases classified elsewhere; M62.84 Sarcopenia; E78.5 Hyperlipidemia, unspecified; F32.9 Major depressive disorder, single episode, unspecified; H40.9 Unspecified glaucoma; F03.90 Unspecified dementia, unspecified severity, without behavioral disturbance, psychotic disturbance, mood disturbance, and anxiety; G62.9 Polyneuropathy, unspecified; E86.0 Dehydration; I12.9 Hypertensive chronic kidney disease with stage 1 through stage 4 chronic kidney disease, or unspecified chronic kidney disease; D69.6 Thrombocytopenia, unspecified; X58.XXXA Exposure to other specified factors, initial encounter; I89.0 Lymphedema, not elsewhere classified; G89.29 Other chronic pain; M54.9 Dorsalgia, unspecified; E78.00 Pure hypercholesterolemia, unspecified; Z98.49 Cataract extraction status, unspecified eye; Z90.49 Acquired absence of other specified parts of digestive tract; Z90.12 Acquired absence of left breast and nipple; Z79.82 Long term (current) use of aspirin; Z79.899 Other long term (current) drug therapy; Y93.89 Activity, other specified; Y92.89 Other specified places as the place of occurrence of the external cause; Y99.8 Other external cause status; Z86.73 Personal history of transient ischemic attack (TIA), and cerebral infarction without residual deficits
CPT/HCPCS: 10080; 15000

== ENCOUNTER 2018-09-15 08:07 | Inpatient (IN) | payer OTHER ==
[2018-09-15] VITALS (7 sets, daily range): BP systolic 81–118; BP diastolic 40–76
[~2018-09-15] VITALS: Ht 149.9 cm; Wt 63.5 kg
[~2018-09-15 08:07] MED LIST changes: +ACIDOPHILUS1 EAC4 PO; +ALEVE220 MG PO; +AUGMENTIN 500-1 EACH PO; +IPRATROPIUM BRO30 ML NASAL; +LASIX 40 MG TAB40 M2 PO; +LIDOPATCH1 EACH TRANSDERM; +NEURONTIN 300300 M1; +SULFAMETHOXAZO1 EACH PO; +TRAZODONE HCL100 MG PO; +TYLENOL325 MG PO
[2018-09-15 08:23] LABS: BE(vivo) -4.5 mmol/L (-2 to +3); HCO3 26.6 mmol/L (22.0-26.0); PO2 352.2 mmHg (80.0-100.0); sO2 99.6 % (92.0-98.0)
[2018-09-15 08:24] LABS: PCO2 92.9 mmHg (35.0-45.0); pH 7.074 (7.360-7.450)
[2018-09-15 08:38] LABS: ABSOLUTE NEUTROPHILS 3.9 thou/uL (1.4-8.2); BASOPHILS 0.2 % (0.0-2.0); EOSINOPHILS 0.2 % (0.0-3.0); HEMATOCRIT 26.2 % (37.0-47.0); HEMOGLOBIN 8.7 gm/dL (12.0-15.0); LYMPHOCYTES 10.6 % (24.0-44.0); MCH 31.5 pg (26.0-34.0); MCHC 33.1 g/dL (28.0-37.0); MCV 95.3 fL (80.0-100.0); MONOCYTES 11.6 % (1.0-8.0); PLATELET COUNT 313 thou/uL (150-400); POLYS 77.4 % (36.0-66.0); RBC 2.75 mil/uL (4.20-5.00); RDW 15.6 % (10.5-14.5)
[2018-09-15 08:40] LABS: ANION GAP 10 mmol/L (7-16); BUN 72 mg/dL (7-18); CALCIUM 8.3 mg/dL (8.5-10.1); CHLORIDE 96 mmol/L (98-107); CO2 27 mmol/L (21-32); CREATININE 2.6 mg/dL (0.6-1.0); GLUCOSE 165 mg/dL (74-106); POTASSIUM 5.2 mmol/L (3.5-5.1); SODIUM 133 mmol/L (136-145)
[2018-09-15 08:50] LABS: APTT 27.5 Seconds (24.5-32.8); INR 1.1
[2018-09-15 08:51] LABS: ALBUMIN 3.2 g/dL (3.4-5.0); MAGNESIUM 3.5 mg/dL (1.8-2.4); SGOT 105 U/L (15-37); SGPT 124 U/L (30-65); TOTAL BILIRUBIN 0.2 mg/dL (<0.1-1.0); TOTAL PROTEIN 6.3 g/dL (6.4-8.2); TROPONIN-I <0.06 ng/mL (<0.06)
[2018-09-15] MEDS ORDERED: DOXYCYCLINE 10100 MG PO (09:35)
[2018-09-15 09:36] LABS: URINE BILIRUBIN NEGATIVE (Negative); URINE BLOOD NEGATIVE (Negative); URINE CLARITY CLEAR; URINE COLOR YELLOW; URINE GLUCOSE-RANDOM* NEGATIVE (Negative); URINE KETONES NEGATIVE (Negative); URINE LEUKOCYTES-REFLEX NEGATIVE (Negative); URINE NITRITE-REFLEX NEGATIVE (Negative); URINE PROTEIN (DIPSTICK) NEGATIVE (Negative); URINE SPECIFIC GRAVITY 1.025 (1.005-1.035); URINE UROBILINOGEN 0.2 E.U./dl (0.2-1.0)
[2018-09-15 09:48] LABS: AMP/METHAMP Negative (Negative); BARBITURATES Negative (Negative); BENZODIAZEPINES Negative (Negative); COCAINE Negative (Negative); METHADONE Negative (Negative); OPIATES POSITIVE (Negative); PCP Negative (Negative)
[2018-09-15 09:58] LABS: HCO3 25.9 mmol/L (22.0-26.0); PCO2 54.4 mmHg (35.0-45.0); PO2 136.1 mmHg (80.0-100.0); sO2 98.4 % (92.0-98.0)
[2018-09-15 09:59] LABS: pH 7.295 (7.360-7.450)
[2018-09-15 14:07] LABS: BE(vivo) -3.1 mmol/L (-2 to +3); HCO3 23.7 mmol/L (22.0-26.0); PCO2 51.4 mmHg (35.0-45.0); PO2 140.2 mmHg (80.0-100.0); sO2 98.5 % (92.0-98.0)
[2018-09-15 14:08] LABS: pH 7.281 (7.360-7.450)
--- NOTE | 2018-09-15 18:31 | NUR ---
PT TO THE UNIT FROM THE ER THIS AM - PT FOUND UNRESPONSIVE AT HOME AND EMS WAS CALLED AND PT TO THE ER. ON ARRIVAL TO THE UNIT PT WAS ON BIPAP WITH IV FLUIDS INFUSING - PATIENT VERY DROWSY BUT AROUSABLE - PATIENT IN SR ON THE MONITOR - ADMISSION ASSESSMENT CHARTED. VSS. NOTED THAT BIPAP WAS ALARMING - RESP NOTIFIED PT HEART RATE BIJAL DOWN TO THE 30'S-40'S - DR SANCHEZ NOTIFIED AND 1.2 MGS OF NARCAN ORDERED - AND GIVEN- LETTLE EFFECT ON HEART RATE - PT ALSO GIVEN SOLU-CORTEF ORDERED. PULMONARY CONSULTED AND IN TO SEE - DR COTTON SPOKE WITH FAMILY AND ADJUSTED BIPAP SETTING POST ABG'S THAT WERE DONE. BIAPAP CONTINUING TO ALARM - RESP NOTIFIED AND THEY SPOKE WITH PULMONOLOGY - PT WITH EPSISODE OF EMESIS WHILE BIPAP MASK INSITU - OT CLEANED UP - LUNGS AUSCULTATED - REMAINED CLR/DIM - DR SANCHEZ NOTIFIED AND CHEST XRAY COMPLETED WITH NO CHANGE FROM PREVIOUS. HEART RATE CONTINUING TO REMAIN SLOW IN THE 30-40 - DR ORDERED 1 MG OF ATROPINE TO BE GIVEN - HR RATE AFTER GIVEN WAS IN THE 70'S FOR A WHILE NOW RATE BACK DOWN INTO THE 50'S. INFORMED THAT PATIENT WAS IN SR RHYTHM ON ARRIVAL TO UNIT AND NOW APPEARS TO BE IN A JUNCTIONAL RHYTHM. CLARIFIED WITH IF HE WANTED SCD' OF TEDS - VERBALLY TOLD ME TEDS AND ORDERED SCD'S - HE WANTED DIVINE HOSE THESE HAVE BEEN PLACED ON APTIENT. PATIENT NOTED TO HAVE WOUNDS OF LEGS BILATERALLY - PICTURES TAKEN AND PLACED IN CHART. FLUIDS CONTINUE ORDERED - IV ANTIBIOTICS GIVEN. RESP SPOKE WITH PULBernice TDV ON BIPAP NOW AT 500 AND BIPAP NOT ALARMING IT WAS AND SATS NOW IN THE 90'S WHERE THEY HAD BEEN IN THE 80'S PRIOR. PT REMAINS NPO - FAMILY AT THE BEDISDE - PT REMAINS DROWSY BUT DOES AWAKEN TO VERBAL STIMULI AND FOLLOWS COMMANDS.
--- NOTE | 2018-09-15 19:01 | EKG ---
[place] [address] [facility] [address] [place] [address] ELECTROCARDIOGRAM REPORT Name: KURTCHINYERE Room #: 202-P ADM IN M.R.#: [id number] ������������������ Admission: 09/15/18 ������������������ Attend Phys: Miroslava Caballero Discharge: ������������������ Date of : 32 Report #: [id number] ����������������������������������������������������������������� [id number] THIS REPORT FOR: //name// [facility] Test Date: 2018-09-15 Test Time: 10:50:51 Pat Name: CHINYERE HICKS Department: Room: 202 P Gender: F Supervisor Wool Shearing: DEREK : 1930 Requested By: Miroslava Caballero Order Number: [id number] MD: Mitesh Luque Measurements Intervals [place] Rate: 60 P: 55 [place]: 131 QRS: -6 QRSD: 109 T: 10 QT: 466 QTc: 466 Interpretive Statements Sinus rhythm Probable anteroseptal infarct, old Compared to ECG 08/23/2018 15:29:28 no significant changes Electronically Signed On 09-15-2018 19:01:10 CDT by Mitesh Luque [email or web address] ��������������������������������������������� <ELECTRONICALLY SIGNED> ���������������������������������������� By: Mitesh Luque MD ��������������������������������������������� 09/15/18 1901 1050 Mitesh Luque MD /EPI
--- NOTE | 2018-09-15 19:16 | EKG ---
[place] [address] [facility] [email or web address] [address] ELECTROCARDIOGRAM REPORT Name: TIMMY HICKSJOSH López Room #: 202-P ADM IN M.R.#: [id number] ������������������ Admission: 09/15/18 ������������������ Attend Phys: Miroslava Caballero Discharge: ������������������ Date of : 32 Report #: [id number] ����������������������������������������������������������������� [id number] THIS REPORT FOR: //name// [facility] ED Test Date: 2018-09-15 Test Time: 08:18:45 Pat Name: CHINYERE HICKS Department: Room: 202 Gender: F Senior Caregiver: TSTORCK : 1930 Requested By: Junior Kuhn Order Number: [id number] MD: Craig Jensen Measurements Intervals [place] Rate: 89 P: DE: QRS: -41 QRSD: 143 T: 79 QT: 431 QTc: 525 Interpretive Statements Sinus rhythm RBBB and LAFB Probable left ventricular hypertrophy Compared to ECG 08/23/2018 15:29:28 Left anterior fascicular block now present Right bundle-branch block now present Sinus bradycardia no longer present Electronically Signed On 09-15-2018 19:16:28 CDT by Craig Jensen [email or web address] ��������������������������������������������� <ELECTRONICALLY SIGNED> ���������������������������������������� By: Craig Jensen MD, [facility] ��������������������������������������������� 09/15/18 1916 7 7 Craig Jensen MD, [facility] /EPI
[2018-09-16 00:18] VITALS: BP 94/50
--- NOTE | 2018-09-16 04:15 | NUR ---
ASSESSMENTS CHARTED. PATIENT HR IMPROVING FROM 40'S TO 70'S. PATIENT OPENING EYES SPONTANEOUSLY, STARTED SHIFT IN A JUNCTIONAL RHYTHM TO NOW SINUS RHYTHM WITH BBB. CHANGED TO FULL FACE MASK FOR BETTER FIT. REMOVED DIVINE HOSE FOR NIGHT SLEEP. BLOOD PRESSURE STILL SOFT AT 94/50. PLAN IS TO CONTINUE RESPIRATORY SUPPORT, STEROIDS.
[2018-09-16 05:18] LABS: HEMATOCRIT 25.6 % (37.0-47.0); HEMOGLOBIN 8.3 gm/dL (12.0-15.0); MCHC 32.4 g/dL (28.0-37.0); MCV 95.7 fL (80.0-100.0); RBC 2.67 mil/uL (4.20-5.00); RDW 15.5 % (10.5-14.5); WBC 7.1 thou/uL (4.0-11.0)
[2018-09-16 05:34] LABS: ALBUMIN 3.1 g/dL (3.4-5.0); ANION GAP 8 mmol/L (7-16); BUN 77 mg/dL (7-18); CALCIUM 7.9 mg/dL (8.5-10.1); CHLORIDE 101 mmol/L (98-107); CO2 26 mmol/L (21-32); CREATININE 3.2 mg/dL (0.6-1.0); GLUCOSE 138 mg/dL (74-106); MAGNESIUM 3.2 mg/dL (1.8-2.4); PHOSPHORUS 7.8 mg/dL (2.5-4.9); SODIUM 135 mmol/L (136-145); TROPONIN-I <0.06 ng/mL (<0.06)
[2018-09-16 05:45] LABS: POTASSIUM 6.1 mmol/L (3.5-5.1)
[2018-09-16 05:48] LABS: BE(vivo) -4.2 mmol/L (-2 to +3); HCO3 23.8 mmol/L (22.0-26.0); PCO2 60.3 mmHg (35.0-45.0); PO2 378.1 mmHg (80.0-100.0); sO2 99.7 % (92.0-98.0)
[2018-09-16 05:49] LABS: pH 7.214 (7.360-7.450)
[2018-09-16 07:05] VITALS: BP 87/36
[2018-09-16 11:05] VITALS: BP 81/42
--- NOTE | 2018-09-16 17:46 | NUR ---
PT IS COMFORT CARE FAMILY AT BEDSIDE, PT DROWSY ON MS GTT AT 2MG/HR, O2 AT 2L, NO DISTRESS WITH BREATHING, HAVING PERIODS OF APNEA AND HR ON MONITER 25 -35 WILL CONTINUE TO CARE FOR PT AND FAMILY WITH CONFORT MEASURES
--- NOTE | 2018-09-17 00:31 | NUR ---
ASSUMED CARE AT 190. PT ON COMFORT CARE . FAMILY AT BEDSIDE. PATIENT APPEARED COMFORTABLE. REPOSITIONED PATIENT AT 1999 AND AT 2039, FAMILY NOTICED INCREASE GURGLING SOUND AND GRIMACING. HELDER HOFFMAN NOTIFIED AND ORDER FOR ATROPIN OBTAINED. PT WAS ON MORPHINE DRIP AND 2MG/HR. MORPHINE DRIP INCREASE TO 2.5 MG/HR AND ATIVAN GIVEN FOR CALM. PATIENT PASSED AT 2202, FAMILY WAS AT BEDSIDE. HELDER HOFFMAN NOTIFIED. MTN NOTIFIED AT 2219, PATIENT NOT A CANDIDATE FOR DONATION, REFERRAL NUMBER [id number]. COLOR BUFFER WAS ALSO NOTIFIED AT 2202. FAMILY TOO ALL PATIENTS BELONGINGS. OBTAINED HOME FROM FAMILY AND NEEDED PAPERWORK HANDED TO SECURITY. ALL CONSULTED PHYSICIANS WERE NOTIFIED. AWAITING BODY PICK.
== END 2018-09-16 22:03 | DRG 871 ==
LOC: ER 08:07 → EROBS 08:52 → 2N 10:17
PROVIDERS: Emergency Medicine; Pediatrics; ADMIT Hospitalist
PROC: 5A09357 Assistance with Respiratory Ventilation, Less than 24 Consecutive Hours, Continuous Positive Airway Pressure (ICD-10-PCS; principal; 2018-09-15)
DX: A41.9 Sepsis, unspecified organism (principal); J96.02 Acute respiratory failure with hypercapnia; E87.2 Acidosis; N17.9 Acute kidney failure, unspecified; G93.40 Encephalopathy, unspecified; E87.1 Hypo-osmolality and hyponatremia; I50.30 Unspecified diastolic (congestive) heart failure; L97.929 Non-pressure chronic ulcer of unspecified part of left lower leg with unspecified severity; L97.919 Non-pressure chronic ulcer of unspecified part of right lower leg with unspecified severity; Z66 Do not resuscitate; I10 Essential (primary) hypertension; M19.90 Unspecified osteoarthritis, unspecified site; K21.9 Gastro-esophageal reflux disease without esophagitis; E78.5 Hyperlipidemia, unspecified; E78.00 Pure hypercholesterolemia, unspecified; E87.5 Hyperkalemia; E11.9 Type 2 diabetes mellitus without complications; E03.9 Hypothyroidism, unspecified; D64.9 Anemia, unspecified; I87.8 Other specified disorders of veins; I45.10 Unspecified right bundle-branch block; F03.90 Unspecified dementia, unspecified severity, without behavioral disturbance, psychotic disturbance, mood disturbance, and anxiety; Z86.73 Personal history of transient ischemic attack (TIA), and cerebral infarction without residual deficits; Z91.81 History of falling; Z90.49 Acquired absence of other specified parts of digestive tract; Z90.12 Acquired absence of left breast and nipple; Z98.49 Cataract extraction status, unspecified eye; Z98.1 Arthrodesis status; Z79.899 Other long term (current) drug therapy
CPT/HCPCS: 10081